=== PATIENT | female | born 1970 | race African-American/Black ===

== ENCOUNTER 2023-02-13 11:25 | Inpatient (IN) | payer OTHER ==
[~2023-02-13] VITALS: Ht 162.6 cm; Wt 95.3 kg
[2023-02-13] VITALS (9 sets, daily range): BP systolic 101–134; BP diastolic 58–87; PULSE 89–107; RESP 11–20; TEMP 98.5–99.9
[2023-02-13] MEDS ORDERED: SODIUM CHLORIDE 0.9% 1,000 ML IV ONE (12:00)
[2023-02-13 12:30] LABS: BASOPHILS % 0.2 % (0.0-2.0); EOSINOPHILS % 0.3 % (0.0-5.0); LYMPHOCYTES % 25.5 % (20.0-50.0); MEAN CORPUSCULAR HEMOGLOBIN 28.2 pg (28.0-32.0); MEAN CORPUSCULAR VOLUME 85.1 fL (81.0-99.0); MEAN PLATELET VOLUME 8.8 fl (7.4-10.4); MONOCYTES % 4.8 % (2.0-8.0); NEUTROPHILS % 69.2 % (40.0-76.0); PLATELET 199 x1000/uL (130-400); RED BLOOD CELL COUNT 1.51 mill/uL (4.2-5.4); RED CELL DISTRIBUTION WIDTH 14.4 % (11.6-14.6)
[2023-02-13 12:38] LABS: CHLORIDE 110 mEq/L (98-107)
[2023-02-13 12:41] LABS: PROTHROMBIN TIME 10.9 sec (9.6-11.0)
[2023-02-13 13:15] LABS: HEMATOCRIT. 12.8 % (36.0-48.0); HEMOGLOBIN. 4.3 g/dL (12.0-16.0)
[2023-02-13] MEDS ORDERED: PANTOPRAZOLE SODIUM 40 MG/VIAL IV ONE (14:30)
[2023-02-13] MEDS ORDERED: GUAIFENESIN 200MG/10ML SUGAR FREE UDC PO PRN (18:00)
[2023-02-13] MEDS ORDERED: ACETAMINOPHEN 325MG TABLET PO PRN ×2 (18:00)
[2023-02-13] MEDS ORDERED: CLONIDINE 0.1MG TABLET PO PRN (18:00)
[2023-02-13] MEDS ORDERED: IPRATROPIUM/ALBUTEROL 0.5-3(2.5)MG/3ML NEB NEB PRN (18:00)
[2023-02-13] MEDS ORDERED: ONDANSETRON HCL 4MG/2ML INJ IV PRN (18:00)
[2023-02-13] MEDS ORDERED: MAGNESIUM/ALUMINUM HYDROXIDE/SIMETHICONE 30ML UDC PO PRN (18:00)
[2023-02-13] MEDS: SODIUM CHLORIDE 0.45% 1,000 ML IV SCH (18:00)
[2023-02-13] MEDS ORDERED: DEXTROSE 50% WATER 50ML SYRINGE IV PRN (19:45)
[2023-02-13] MEDS: INSULIN LISPRO 100 UNITS/ML SUBCUT SCH (21:22)
[2023-02-13] MEDS: BLOOD SUGAR DIAGNOSTIC STRIP TEST SCH (21:22)
[2023-02-13] MEDS: INSULIN GLARGINE 100 UNITS/ML SUBCUT SCH (21:22)
[2023-02-13 23:46] LABS: TOTAL IRON BINDING CAPACITY 225 ug/dL (250-450)
[2023-02-14] VITALS (22 sets, daily range): BP systolic 109–163; BP diastolic 59–93; PULSE 75–89; RESP 6–21; TEMP 97.9–98.9
[2023-02-14 00:01] LABS: HEMOGLOBIN 5.7 g/dL (12.0-16.0)
[2023-02-14 00:03] LABS: FERRITIN 68 ng/mL (10-291)
[2023-02-14 00:14] LABS: VITAMIN B12 SERUM 334 pg/mL (211-911)
[2023-02-14] MEDS: SODIUM CHLORIDE 0.45% 1,000 ML IV SCH ×2 (04:09→14:15)
[2023-02-14] MEDS: BLOOD SUGAR DIAGNOSTIC STRIP TEST SCH ×4 (07:38→21:00)
[2023-02-14] MEDS: INSULIN LISPRO 100 UNITS/ML SUBCUT SCH ×4 (07:47→21:00)
[2023-02-14] MEDS: CYANOCOBALAMIN 1000MCG/ML VIAL IM SCH (12:15)
[2023-02-14] MEDS ORDERED: IOHEXOL-300 100 ML BOTTLE ONE (19:03)
[2023-02-14] MEDS: INSULIN GLARGINE 100 UNITS/ML SUBCUT SCH (22:00)
[2023-02-15] VITALS (9 sets, daily range): BP systolic 111–159; BP diastolic 66–107; PULSE 71–94; RESP 12–21; TEMP 97.6–98.1; O2SAT 100
[2023-02-15] MEDS: SODIUM CHLORIDE 0.45% 1,000 ML IV SCH (00:55)
[2023-02-15 02:04] LABS: BASOPHILS % 0.3 % (0.0-2.0); HEMATOCRIT. 23.4 % (36.0-48.0); LYMPHOCYTES % 32.2 % (20.0-50.0); MEAN CORPUSCULAR HEMOGLOBIN 28.6 pg (28.0-32.0); MEAN CORPUSCULAR VOLUME 84.2 fL (81.0-99.0); MEAN PLATELET VOLUME 8.5 fl (7.4-10.4); MONOCYTES % 5.3 % (2.0-8.0); NEUTROPHILS % 61.2 % (40.0-76.0); PLATELET 189 x1000/uL (130-400); RED BLOOD CELL COUNT 2.78 mill/uL (4.2-5.4); RED CELL DISTRIBUTION WIDTH 14.8 % (11.6-14.6)
[2023-02-15 02:11] LABS: CHLORIDE 109 mEq/L (98-107)
[2023-02-15 02:18] LABS: PROTHROMBIN TIME 10.8 sec (9.6-11.0)
[2023-02-15 07:27] LABS: BASOPHILS % 0.4 % (0.0-2.0); EOSINOPHILS % 1.3 % (0.0-5.0); HEMATOCRIT. 23.7 % (36.0-48.0); HEMOGLOBIN. 8.2 g/dL (12.0-16.0); LYMPHOCYTES % 31.5 % (20.0-50.0); MEAN CORPUSCULAR HEMOGLOBIN 29.2 pg (28.0-32.0); MEAN CORPUSCULAR VOLUME 84.6 fL (81.0-99.0); MEAN PLATELET VOLUME 8.6 fl (7.4-10.4); MONOCYTES % 5.9 % (2.0-8.0); NEUTROPHILS % 60.9 % (40.0-76.0); PLATELET 191 x1000/uL (130-400)
[2023-02-15] MEDS: INSULIN LISPRO 100 UNITS/ML SUBCUT SCH ×2 (08:00→12:02)
[2023-02-15] MEDS: CYANOCOBALAMIN 1000MCG/ML VIAL IM SCH (08:23)
[2023-02-15] MEDS: BLOOD SUGAR DIAGNOSTIC STRIP TEST SCH ×2 (08:26→12:02)
[2023-02-15 08:59] LABS: CHLORIDE 109 mEq/L (98-107)
[2023-02-15] MEDS ORDERED: POTASSIUM CHLORIDE 20MEQ TABLET SR PO NR (14:00)
== END 2023-02-15 15:12 | disposition home or self-care (01) | DRG 244 ==
LOC: ER 11:25 → 5EST 14:25 → EDBEDREQTM 14:28 → EDBEDREQ 14:28 → EDBEDREQSVC 14:28
PROVIDERS: ADMIT Internal Medicine; ATTEND Internal Medicine
PROC: 30233N1 Transfusion of Nonautologous Red Blood Cells into Peripheral Vein, Percutaneous Approach (ICD-10-PCS; principal; 2023-02-13)
DX: K57.31 Diverticulosis of large intestine without perforation or abscess with bleeding (principal); D50.0 Iron deficiency anemia secondary to blood loss (chronic); E11.9 Type 2 diabetes mellitus without complications; I10 Essential (primary) hypertension; E53.8 Deficiency of other specified B group vitamins; K64.4 Residual hemorrhoidal skin tags
CPT/HCPCS: 36415; 74177; 80048; 80053; 82607; 82728; 82746; 82962; 83036; 83540; 83550; 85018; 85025; 85044; 86850; 86900; 86920; 93005; 99291; C9113; J1815; J3420; J7030; P9016; Q9967

== ENCOUNTER 2024-10-15 15:34 | Emergency (ER) | payer OTHER ==
[~2024-10-15] VITALS: Ht 170.2 cm; Wt 136.0 kg
[2024-10-15 15:36] VITALS: O2SAT 98
[2024-10-15] MEDS: SODIUM CHLORIDE 0.9% 1,000 ML IV ONE ×2 (16:03)
[2024-10-15 16:28] LABS: BASOPHILS % 0.6 % (0.0-2.0); EOSINOPHILS % 0.1 % (0.0-5.0); HEMOGLOBIN. 12.2 g/dL (12.0-16.0); LYMPHOCYTES % 24.5 % (20.0-50.0); MEAN CORPUSCULAR HEMOGLOBIN 28.1 pg (28.0-32.0); MEAN CORPUSCULAR HGB CONC 32.1 g/dL (31.0-37.0); MEAN CORPUSCULAR VOLUME 87.6 fL (81.0-99.0); MEAN PLATELET VOLUME 11.4 fl (7.4-10.4); NEUTROPHILS % 70.8 % (40.0-76.0); PLATELET 138 x1000/uL (130-400); RED BLOOD CELL COUNT 4.33 mill/uL (4.2-5.4); RED CELL DISTRIBUTION WIDTH 12.5 % (11.6-14.6); WHITE BLOOD COUNT 6.9 x1000/uL (4.5-11.0)
[2024-10-15 16:35] LABS: PROTHROMBIN TIME 10.3 sec (9.6-11.0)
[2024-10-15 16:39] LABS: BG DEOXYHEMOGLOBIN 64.8 % (0.0-5.0)
[2024-10-15 16:47] LABS: CHLORIDE 86 mEq/L (98-107); POTASSIUM 3.2 mEq/L (3.5-5.1); SODIUM 122 mEq/L (136-145)
[2024-10-15 16:48] LABS: CALCIUM 9.1 mg/dL (8.7-10.4); CARBON DIOXIDE 24 mEq/L (21-32)
[2024-10-15 16:53] LABS: CREATININE 1.1 mg/dL (0.6-1.0); GLUCOSE 310 mg/dL (70-105); UREA NITROGEN BLOOD 15 mg/dL (9-23)
[2024-10-15 16:54] LABS: TROPONIN I HIGH SENSITIVITY 11 ng/L (3.0-34)
[2024-10-15 16:56] LABS: BETA HYDROXYBUTYRATE 1.5 mMol/L (0.0-0.3)
[2024-10-15 16:57] LABS: ETHANOL BLOOD < 10 mg/dL (<10)
[2024-10-15 16:58] LABS: CLARITY URINE CLEAR (CLEAR); COLOR URINE YELLOW (YELLOW); GLUCOSE URINE 3+ (NEGATIVE); KETONES URINE 2+ (NEGATIVE); LEUKOCYTE ESTERASE URINE TRACE (NEGATIVE); NITRITE URINE NEGATIVE (NEGATIVE); OCCULT BLOOD URINE NEGATIVE (NEGATIVE); PROTEIN URINE NEGATIVE (NEGATIVE); SPECIFIC GRAVITY URINE 1.016 (1.005-1.030); UROBILINOGEN URINE 0.2 E.U./dL (0.2-1.0)
[2024-10-15 17:11] LABS: *AMPHETAMINES SCREEN URINE NEGATIVE (NEGATIVE); *BARBITURATES SCREEN URINE NEGATIVE (NEGATIVE); *BENZODIAZEPINES SCREEN URINE NEGATIVE (NEGATIVE); *COCAINE SCREEN URINE NEGATIVE (NEGATIVE); METHADONE URINE SCREEN NEGATIVE (NEGATIVE)
[2024-10-15 17:12] LABS: CANNABINOID URINE SCREEN NEGATIVE (NEGATIVE); ECSTASY MDMA SCREEN URINE NEGATIVE (NEGATIVE); OPIATES URINE SCREEN NEGATIVE (NEGATIVE); PHENCYCLIDINE URINE SCREEN NEGATIVE (NEGATIVE)
[2024-10-15] MEDS ORDERED: POTASSIUM CHLORIDE 20MEQ TABLET SR PO ONE (17:15)
[2024-10-15 17:16] LABS: BACTERIA URINE NONE SEEN; RBC URINE NONE SEEN /hpf (0-2); WBC URINE NONE SEEN /hpf (0-2)
[2024-10-15 17:17] LABS: TRIPLE PHOSPHATE CRYSTAL URINE 1+ /lpf
[2024-10-15] MEDS ORDERED: INSULIN LISPRO 100 UNITS/ML SUBCUT STA (17:44)
[2024-10-15] MEDS ORDERED: DEXTROSE 50% WATER 50ML SYRINGE IV PRN (17:45)
[2024-10-15 18:39] VITALS: BP 142/85; PULSE 86; RESP 16; TEMP 37.1; O2SAT 98
[2024-10-15] MEDS ORDERED: BLOOD SUGAR DIAGNOSTIC STRIP TEST SCH (21:00)
== END 2024-10-15 18:53 | disposition home or self-care (01) ==
LOC: ER 15:34
DX: E11.65 Type 2 diabetes mellitus with hyperglycemia (principal); H53.8 Other visual disturbances; E78.00 Pure hypercholesterolemia, unspecified; Z98.890 Other specified postprocedural states
CPT/HCPCS: 80305; 80048; 81003; 82010; 80320; 82962; 85025; 85610; 84484; 36415; 71045; 70450; 82375; 82803; 93005; 96360; 99285; J7030; Z7610; G0480